=== PATIENT | female | born 1970 | race Caucasian/White ===

== ENCOUNTER → 2016-04-21 | Outpatient (REF) | payer BC ==
[~2016-04-21] MED LIST: ALBU17IN INH; EFFE75CA75 PO; PERC5TAB6 PO; SLOWTAB3 PO; VITA10002 PO
== END ==
LOC: M SFHCLERA 11:25
PROVIDERS: ATTEND Family Medicine
DX: I10 Essential (primary) hypertension (principal)

== ENCOUNTER → 2016-11-03 | Outpatient (REF) | payer BC ==
[~2016-11-03] MED LIST changes: +PERC5TAB12 PO; -PERC5TAB6 PO
== END ==
LOC: M SFHCLERA 09:55
PROVIDERS: ATTEND Nurse Practitioner Family
DX: R39.15 Urgency of urination (principal)

== ENCOUNTER → 2018-10-22 | Outpatient (CLI) | payer BC ==
[~2018-10-22] MED LIST changes: +CYAN100049 PO; +EFFE75CA2 PO; -EFFE75CA75 PO; -VITA10002 PO
--- NOTE | 2018-10-22 17:55 | REP ---
Clinical: Trauma. Foreign body. Technique: AP, lateral, bilateral oblique views right first digit . Findings: The osseous structures and joint spaces are intact and normal. There is no evidence for acute fracture or dislocation. Surrounding soft tissues are unremarkable. No subcutaneous emphysema or radiodense foreign body. Impression: Normal examination. No foreign body identified. No subcutaneous emphysema. Electronically Signed by Raleigh Llanes MD 10/22/2018 05:47 P
== END ==
LOC: M LRY 17:31
PROVIDERS: ATTEND Physician Assistant
DX: S60.459A Superficial foreign body of unspecified finger, initial encounter (principal); X58.XXXA Exposure to other specified factors, initial encounter; Y92.9 Unspecified place or not applicable

== ENCOUNTER → 2018-12-10 | Outpatient (REF) | payer BC ==
[2018-12-12 00:07] LABS: ANTINUCLEAR ANTIBODIES DIRECT Negative (Negative); CYCLIC CITRULLINATED PEPTIDE 3 units (0-19)
[2018-12-14 00:06] LABS: Lyme Disease IgG/IgM Antibodie <0.91 ISR (0.00-0.90); Lyme Disease IgM Ab Quantitati <0.80 index (0.00-0.79)
== END ==
LOC: M LAB REF 12:06
PROVIDERS: ATTEND Internal Medicine
DX: M25.50 Pain in unspecified joint (principal); M25.549 Pain in joints of unspecified hand

== ENCOUNTER → 2020-05-21 | Outpatient (REF) | payer BC ==
[2020-05-21 17:59] LABS: PERCENT SATURATION 25.8 % (13.2-45.0)
== END ==
LOC: M LAB REF 16:49
PROVIDERS: ATTEND Internal Medicine
DX: D64.9 Anemia, unspecified (principal)

== ENCOUNTER → 2020-11-05 | Outpatient (REF) | payer BC ==
[2020-11-05 17:42] LABS: PERCENT SATURATION 20.8 % (13.2-45.0)
== END ==
LOC: M LAB REF 16:32
PROVIDERS: ATTEND Internal Medicine
DX: D50.9 Iron deficiency anemia, unspecified (principal)

== ENCOUNTER → 2021-05-09 | Outpatient (REF) | payer BC ==
[2021-05-10 13:04] LABS: FERRITIN 42 NG/ML (8-252); IRON (FE) 68 UG/DL (50-170); PERCENT SATURATION 21.1 % (13.2-45.0); TOTAL IRON BINDING CAPACITY 322 UG/DL (250-450)
== END ==
LOC: M LAB REF 11:45
PROVIDERS: ATTEND Internal Medicine
DX: D50.9 Iron deficiency anemia, unspecified (principal); Z11.59 Encounter for screening for other viral diseases

== ENCOUNTER → 2022-08-14 | Outpatient (REF) | payer BC ==
[2022-08-16 05:07] LABS: RUBEOLA IgG ANTIBODY 98.4 AU/mL (Immune >16.4)
== END ==
LOC: M LAB REF 16:31
PROVIDERS: ATTEND Internal Medicine
DX: Z02.1 Encounter for pre-employment examination (principal)

== ENCOUNTER → 2023-06-27 | Outpatient (REF) | payer BC | LOC: M LAB REF 16:31 | PROVIDERS: ATTEND Internal Medicine | DX: R10.9 Unspecified abdominal pain (principal) ==

== ENCOUNTER → 2023-10-05 | Outpatient (CLI) | payer BC | LOC: M WHC 13:24 | PROVIDERS: ATTEND Obstetrics & Gynecology | DX: R10.2 Pelvic and perineal pain (principal); N83.202 Unspecified ovarian cyst, left side; Z90.710 Acquired absence of both cervix and uterus ==

== ENCOUNTER → 2024-07-04 | Outpatient (REF) | payer BC ==
[2024-07-04 13:35] LABS: PERCENT SATURATION 29.5 % (13.2-45.0)
[2024-07-04 13:38] LABS: FERRITIN 54.8 NG/ML (7.3-270.7)
[2024-07-04 18:45] LABS: ATYPICAL LYMPH 2 % (0-5); BASOPHILS 1 % (0-1); EOSINOPHILS 7 % (0-3); LYMPHOCYTES 38 % (16-44); MONOCYTES 2 % (0-5); NEUTROPHILS 50 % (28-66)
[2024-07-04 18:46] LABS: MICROCYTOSIS 3+; PLATELET ESTIMATE NORMAL (NORMAL)
[2024-07-04 20:28] LABS: SOURCE PERIPHERAL SMEAR
== END ==
LOC: M LAB REF 12:06
PROVIDERS: ATTEND Internal Medicine
DX: D64.9 Anemia, unspecified (principal)

== ENCOUNTER → 2025-02-17 | Outpatient (CLI) | payer BC | LOC: M WUC 15:22 | PROVIDERS: ATTEND Physician Assistant | DX: R21 Rash and other nonspecific skin eruption (principal) ==